=== PATIENT | female | born 1955 | race Caucasian/White ===

== ENCOUNTER 2022-10-28 15:38 | Emergency (ER) | payer MEDICAID ==
[~2022-10-28] VITALS: Ht 149.9 cm; Wt 59.9 kg
[2022-10-28 16:55] VITALS: BP 187/82
--- NOTE | 2022-10-28 17:07 | NUR ---
URINE CUP PROVIDED.
[2022-10-28] MEDS ORDERED: cefTRIAXone 1,000 MG in LIDOCAINE MPF 1% 2.1 ML IM ONE (18:50)
[2022-10-28 19:08] LABS: APPEARANCE,URINE CLEAR (CLEAR); BILIRUBIN,URINE NEGATIVE (NEGATIVE); BLOOD, URINE NEGATIVE (NEGATIVE); LEUKOCYTE ESTERASE ,URINE NEGATIVE (NEGATIVE); NITRITE, URINE NEGATIVE (NEGATIVE); UGLUCOSE NEGATIVE (NEGATIVE)
[2022-10-28 19:14] LABS: COLOR,URINE STRAW (YELLOW)
[2022-10-28] MEDS ORDERED: cefTRIAXone 1,000 MG VIAL ONE (20:27)
[2022-10-28] MEDS ORDERED: LIDOCAINE MPF 1% 5 ML ONE (20:30)
--- NOTE | 2022-10-28 21:44 | NUR ---
PT CALLED FROM INSIDE LOBBY AND OUTSIDE, NO RESPONSE
--- NOTE | 2022-10-28 21:54 | NUR ---
PT LOCATED AND TAKEN TO CHAIR Addendum: 10/28/22 at [address] KENNEDY GUTIERREZ
--- NOTE | 2022-10-28 22:17 | NUR ---
PT TO BED #2
--- NOTE | 2022-10-28 22:18 | NUR ---
Patient resting in bed, A/Ox4, chest rise and fall symmetrical, no s/s of distress, patinet on monitor.
[2022-10-28 22:32] LABS: BASOPHILS % (AUTO) 0.5 % (0.0-2.0); EOSINOPHILS # (AUTO) 0.2 K/uL (0-0.4); EOSINOPHILS % (AUTO) 3.3 % (0.0-4.0); HEMATOCRIT 35.4 % (36-48); HEMOGLOBIN 12.6 g/dL (12.0-16.0); LYMPHOCYTES # (AUTO) 1.9 K/uL (2.5-16.5); MEAN CORPUSCULAR HEMOGLOBIN 30 pg (27-31); MEAN CORPUSCULAR HGB CONC 36 g/dL (33-37); MEAN CORPUSCULAR VOLUME 85.6 fL (80-94); MONOCYTES # (AUTO) 0.4 K/uL (0.8-1.0); NEUTROPHILS # (AUTO) 3.3 K/uL (1.8-7.7); NEUTROPHILS % (AUTO) 57.2 % (42.2-75.2); PLATELET COUNT (AUTO) 314 K/uL (140-450); RED BLOOD CELL COUNT(AUTO) 4.14 MIL/uL (4.20-5.40); RED CELL DISTRIBUTION WIDTH 14.2 % (11.6-13.7); WHITE BLOOD COUNT (AUTO) 5.8 K/uL (4.8-10.8)
[2022-10-28 22:58] LABS: ALBUMIN 4.7 g/dL (3.4-5.0); ANION GAP 13.3 (8-16); CARBON DIOXIDE 26.3 mmol/L (21-32); CREATININE 0.8 mg/dL (0.6-1.3); POTASSIUM 3.6 mmol/L (3.5-5.1); TOTAL BILIRUBIN 0.6 mg/dL (0.0-1.0)
--- NOTE | 2022-10-29 00:05 | NUR ---
Patient resting in bed, A/Ox4, chest rise and fall symmetrical, no s/s of distress, patinet on monitor.
--- NOTE | 2022-10-29 01:46 | NUR ---
Patient resting in bed, A/Ox4, chest rise and fall symmetrical, no s/s of distress, patinet on monitor.
--- NOTE | 2022-10-29 03:30 | NUR ---
Patient resting in bed, A/Ox4, chest rise and fall symmetrical, no s/s of distress, patinet on monitor. Addendum: 10/29/22 at 0650 by [email or web address] Patient resting in bed, A/Ox4, chest rise and fall symmetrical, no c/o pain or s/s of distress, patinet on monitor.
--- NOTE | 2022-10-29 03:46 | NUR ---
ER physician verbally informed of patient's elevated BP and HR. ER physician verbalized understanding.
--- NOTE | 2022-10-29 05:52 | NUR ---
Patient resting in bed, A/Ox4, chest rise and fall symmetrical, no s/s of distress, patinet on monitor. Addendum: 10/29/22 at 0650 by [email or web address] Patient resting in bed, A/Ox4, chest rise and fall symmetrical, no c/o pain or s/s of distress, patinet on monitor.
[2022-10-29 06:45] VITALS: BP 135/81
--- NOTE | 2022-10-29 06:45 | NUR ---
Patient discharged with v/s stable. Written and verbal after care instructions given and explained. Patient verbalized understanding. Ambulatory with steady gait. All questions addressed prior to discharge. Advised to follow up with PMD.
== END 2022-10-29 06:45 | disposition home or self-care (01) ==
LOC: MED 15:38
DX: R10.30 Lower abdominal pain, unspecified (principal); E11.9 Type 2 diabetes mellitus without complications; I10 Essential (primary) hypertension; Z98.890 Other specified postprocedural states
CPT/HCPCS: 36415; 74176; 80053; 81003; 85025; 87040; 96372; 99285; J0696; J2001

== ENCOUNTER 2024-03-24 13:41 | Emergency (ER) | payer MEDICAID, OTHER ==
[~2024-03-24] VITALS: Ht 144.8 cm; Wt 57.2 kg
[2024-03-24 14:13] VITALS: BP 165/55; PULSE 66; RESP 15; TEMP 97.9; O2SAT 99
[2024-03-24 14:39] LABS: BASOPHILS % (AUTO) 0.5 % (0.0-2.0); EOSINOPHILS # (AUTO) 0.3 K/uL (0-0.4); EOSINOPHILS % (AUTO) 7.2 % (0.0-4.0); HEMATOCRIT 33.6 % (36-48); HEMOGLOBIN 11.8 g/dL (12.0-16.0); LYMPHOCYTES % (AUTO) 22.8 % (20.5-51.1); MEAN CORPUSCULAR HEMOGLOBIN 31 pg (27-31); MEAN CORPUSCULAR HGB CONC 35 g/dL (33-37); MEAN CORPUSCULAR VOLUME 88.8 fL (80-94); MONOCYTES # (AUTO) 0.4 K/uL (0.8-1.0); MONOCYTES % (AUTO) 8.4 % (1.7-9.3); NEUTROPHILS # (AUTO) 2.8 K/uL (1.8-7.7); NEUTROPHILS % (AUTO) 61.1 % (42.2-75.2); PLATELET COUNT (AUTO) 224 K/uL (140-450); RED BLOOD CELL COUNT(AUTO) 3.79 MIL/uL (4.20-5.40); RED CELL DISTRIBUTION WIDTH 13.7 % (11.6-13.7); WHITE BLOOD COUNT (AUTO) 4.6 K/uL (4.8-10.8)
[2024-03-24 14:53] LABS: ANION GAP 12.8 (8-16); CARBON DIOXIDE 27.2 mmol/L (21-32); CREATININE 0.8 mg/dL (0.6-1.3)
[2024-03-24 15:05] VITALS: BP 169/63; PULSE 68; RESP 15; TEMP 97.9; O2SAT 99
== END 2024-03-24 15:05 | disposition home or self-care (01) ==
LOC: MED 13:41
DX: E87.5 Hyperkalemia (principal); E11.9 Type 2 diabetes mellitus without complications; I10 Essential (primary) hypertension; Z88.0 Allergy status to penicillin; Z88.6 Allergy status to analgesic agent
CPT/HCPCS: 36415; 80048; 85025; 99283